=== PATIENT | female | born 1955 | race Two or more races ===

== ENCOUNTER 2016-07-17 12:37 | Emergency (ER) | payer OTHER ==
--- NOTE | 2016-07-17 12:47 | ER Document Report ---
ED Medical Screen (RME) - General Stated Complaint: HEADACHE Notes: Cough nasal congestion fullness for about 3 days associated with a headache. I greeted and performed a rapid initial assessment of this patient. Comprehensive ED assessment and evaluation of the patient, analysis of test results and completion of the medical decision making process will be conducted by additional ED providers. TRAVEL OUTSIDE OF THE [place] IN LAST 30 DAYS: No Past Medical History Past Surgical History: Reports: Hx Orthopedic Surgery - Left shoulder rotator cuff repair., Hx Thyroid Surgery - Partial thyroidectomy - Immunizations Hx Diphtheria, Pertussis, Tetanus Vaccination: Yes Physical Exam - Vital signs Vitals: Temp Pulse Resp BP Pulse Ox 98.7 F 100 22 H 111/64 96 07/17/16 12:43 07/17/16 12:43 07/17/16 12:43 07/17/16 12:43 07/17/16 12:43 Course - Vital Signs Vital signs: Temp Pulse Resp BP Pulse Ox 98.7 F 100 22 H 111/64 96 07/17/16 12:43 07/17/16 12:43 07/17/16 12:43 07/17/16 12:43 07/17/16 12:43
[2016-07-17] MEDS ORDERED: PREDNISONE 20 MG TABLET PO ONE (14:10)
[2016-07-17] MEDS ORDERED: IPRATROPIUM/ALBUTEROL 0.5-2.5 MG/3 ML AMPUL NEB ONE (14:10)
[2016-07-17] MEDS ORDERED: AZITHROMYCIN 250 MG TABLET PO ONE (14:11)
[2016-07-17] MEDS ORDERED: ALBUTEROL SULFATE 0.083% NEB 2.5 MG/3 ML AMPUL NEB SCH (14:26)
[2016-07-17] MEDS ORDERED: CEFTRIAXONE INJ 1000 MG VIAL IM ONE (14:34)
[2016-07-17] MEDS ORDERED: LIDOCAINE 1% INJ-PF (10 MG/ML) 30 ML SDV INJ ONE (14:34)
--- NOTE | 2016-07-17 14:39 | ER Document Report ---
HPI - HPI Patient complains to provider of: cold symptoms Onset: Other Onset/Duration: Persistent - 3 weeks Quality of pain: Achy Pain Level: 5 Context: Patient complains of cough for the past 3 weeks with ear pain that developed 3 days ago. Patient reports fever of 102 yesterday. Patient complains of headache that is worse with coughing. Associated Symptoms: Nonproductive cough, Earache, Fever, Headache. denies: Chest pain, Sore throat Exacerbated by: Coughing Relieved by: Denies Similar symptoms previously: Yes Recently seen / treated by doctor: No - ROS ROS below otherwise negative: Yes Systems Reviewed and Negative: Yes All other systems reviewed and negative - CONSTITUTIONAL Constitutional: REPORTS: Fever - EENT EENT: REPORTS: Ear Pain, Congestion - NEURO Neurology: REPORTS: Headache - RESPIRATORY Respiratory: REPORTS: Coughing. DENIES: Trouble Breathing - GASTROINTESTINAL Gastrointestinal: DENIES: Nausea, Patient vomiting - MUSCULOSKELETAL Musculoskeletal: DENIES: Back Pain - DERM Skin Color: Normal Skin Problems: None Past Medical History - General Information source: Patient - Social History Smoking Status: Former Smoker - Quit last month Chew tobacco use (# tins/day): No Frequency of alcohol use: None Drug Abuse: None Occupation: food and beverage manager Lives with: Family Family History: Reviewed & Not Pertinent Patient has suicidal ideation: No Patient has homicidal ideation: No - Medical History Medical History: Negative Renal/ Medical History: Denies: Hx Peritoneal Dialysis Past Surgical History: Reports: Hx Orthopedic Surgery - Left shoulder rotator cuff repair., Hx Thyroid Surgery - Partial thyroidectomy - Immunizations Hx Diphtheria, Pertussis, Tetanus Vaccination: Yes Vertical Provider Document - CONSTITUTIONAL Agree With Documented VS: Yes Exam Limitations: No Limitations General Appearance: WD/WN, No Apparent Distress - INFECTION CONTROL TRAVEL OUTSIDE OF THE [place] IN LAST 30 DAYS: No - HEENT HEENT: Atraumatic, Normocephalic, Tympanic Membrane Red - Bilateral, Tympanic Membrane Bulging - Bilateral - NECK Neck: Normal Inspection, Supple. negative: Lymphadenopathy-Left, Lymphadenopathy-Right - RESPIRATORY Respiratory: No Respiratory Distress, Rhonchi, Wheezing. negative: Rales O2 Sat by Pulse Oximetry: 96 - CARDIOVASCULAR Cardiovascular: Regular Rate, Regular Rhythm, No Murmur - BACK Back: Normal Inspection - MUSCULOSKELETAL/EXTREMETIES Musculoskeletal/Extremeties: MAEW - NEURO Level of Consciousness: Awake, Alert, Appropriate Motor/Sensory: No Motor Deficit - DERM Integumentary: Warm, Dry, No Rash Course - Re-evaluation Re-evalutation: 07/17/16 16:21 Patient with decreased wheezing and increased air movement. Patient states that her cough frequency has decreased as well. Discussed worsening signs or symptoms that patient should return to medially for. Patient verbalized understanding and agrees with plan of care. - Vital Signs Vital signs: Temp Pulse Resp BP Pulse Ox 98.7 F 100 22 H 111/64 96 07/17/16 12:43 07/17/16 12:43 07/17/16 12:43 07/17/16 12:43 07/17/16 12:43 - Diagnostic Test Radiology reviewed: Image reviewed, Reports reviewed Discharge - Discharge Clinical Impression: Wheezing, Cough Pneumonia Qualifiers: Pneumonia type: due to unspecified organism Laterality: right Lung location: middle lobe of lung Qualified Code(s): J18.1 - Lobar pneumonia, unspecified organism Otitis media Qualifiers: Otitis media type: unspecified Laterality: bilateral Chronicity: acute Condition: Stable Disposition: HOME, SELF-CARE Instructions: Otitis Media ([facility]) Additional Instructions: Return immediately for any new or worsening symptoms Followup with your primary care provider, call tomorrow to make a followup appointment PNEUMONIA: Your examination indicates that you have pneumonia. This is an infection of the lung tissue, usually caused by bacteria or a virus. Symptoms include cough, fever, shaking chills, chest pain, shortness of breath, and coughing up bloody sputum. Treatment for bacterial pneumonia includes rest, antibiotics for 10 to 14 days, increasing your clear liquid intake, a cool mist humidifier at your bedside, and fever medication. Often, a repeat chest X-ray is performed in a few weeks--even if you feel better--to ascertain whether the infection has completely resolved and no underlying lung problem is present. You should call the physician if you develop persistent vomiting, high fever that does not respond to fever medication, increasing shortness of breath , confusion, or lethargy. Also, failure to improve within two to three days is an indication for re-examination. ANTIBIOTIC INJECTION: You have been given an antibiotic injection. Sometimes the injection must be combined with antibiotic pills. For some infections, the shot provides all the antibiotic that's needed. Common side effects of antibiotics include nausea, intestinal cramping, or diarrhea. These are very unusual following a shot. Women may develop vaginal yeast infections, and babies can get yeast ( thrush) in the mouth following the use of antibiotics. Contact your physician if you develop significant side effects from this medication. Allergy to this antibiotic can result in hives, wheezing, faintness, or itching. If symptoms of allergy occur, call the doctor at once. ROCEPHIN: You have been given an injection of an antibiotic called Rocephin ( ceftriaxone). Sometimes the injection must be combined with antibiotic pills. For some infections, such as an uncomplicated ear infection, Rocephin provides all the antibiotic that's needed. The antibiotic will be in your body for about two days. For serious infections, we usually repeat doses of Rocephin daily. Side effects are very unusual following a shot. Women may develop vaginal yeast infections, and babies can get yeast (thrush) in the mouth following the use of antibiotics. Contact your physician if you have symptoms with this medication. Allergy to this antibiotic can result in hives, wheezing, faintness, or itching. If symptoms of allergy occur, call the doctor at once. ANTIBIOTIC THERAPY: You have been given an antibiotic prescription. It's important that you take all the medication, unless instructed otherwise by your physician. Failure to complete the entire course can result in relapse of your condition. Common side effects of antibiotics include nausea, intestinal cramping, or diarrhea. Women may develop vaginal yeast infections, and babies can get yeast (thrush) in the mouth following the use of antibiotics. Contact your physician if you develop significant side effects from this medication. Allergy to this antibiotic can result in hives, wheezing, faintness, or itching. If symptoms of allergy occur, stop the medication and call the doctor. AZITHROMYCIN: Azithromycin (Zithromax) is a broad spectrum antibiotic in the same class as erythromycin. It can treat a variety of bacterial infections, but is most frequently used for respiratory infections. Azithromycin is extremely long-lasting. It accumulates in body tissues and continues to kill bacteria for many days. In order to improve absorption, Azithromycin should be taken at least one hour before or two hours after a meal. It does not have the same strong tendency to upset the stomach as erythromycin and is usually very well tolerated. Patients who have had a rash or other true allergic reactions to erythromycin should not take this medication. Call if you develop gastrointestinal distress, severe diarrhea, rash, hives, itching, or shortness of breath. USE OF ACETAMINOPHEN (Tylenol): Acetaminophen may be taken for pain relief or fever control. It's much safer than aspirin, offering a wider range of "safe" dosages. It is safe during . Some brand names are Tylenol, Panadol, Datril, Anacin 3, Tempra, and Liquiprin. Acetaminophen can be repeated every four hours. The following are maximum recommended dosages: WEIGHT Dose Drops Elixir Chewable( 80mg) (LBS.) drprs=droppers tsp=teaspoon >89 pounds or adults 650 mg to 900 mg Acetaminophen can be repeated every four hours. Maximum dose not to exceed 4000 mg a day. These maximum recommended dosages are slightly higher than the dosages written on the product container, but these dosages are very safe and below the toxic dosage for acetaminophen. FOLLOW-UP CARE: If you have been referred to a physician for follow-up care, call the physician s office for an appointment as you were instructed or within the next two days. If you experience worsening or a significant change in your symptoms, notify the physician immediately or return to the Emergency Department at any time for re-evaluation. Prescriptions: Albuterol Sulfate [Ventolin Hfa] 2 puff IH Q4HP PRN #17 gm PRN Reason: Azithromycin [Zithromax 250 mg Tablet] 250 mg PO DAILY 4 Days Prednisone [Deltasone 20 mg Tablet] 3 tab PO DAILY 4 Days Forms: Return to Work Referrals: [facility] [Provider Group] - Follow up as needed [facility] [Provider Group] - Follow up tomorrow
[2016-07-17] MEDS ORDERED: ALBUTEROL SULFATE 0.083% NEB 2.5 MG/3 ML AMPUL NEB ONE (15:53)
[2016-07-17] MEDS ORDERED: ONDANSETRON 4 MG TAB.RAPDIS ONE (15:53)
[2016-07-17] MEDS ORDERED: ONDANSETRON 4 MG TAB.RAPDIS PO ONE (15:53)
[2016-07-17 16:59] VITALS: BP 106/65
== END 2016-07-17 16:56 | disposition home or self-care (01) ==
LOC: ER 12:37
DX: J18.1 Lobar pneumonia, unspecified organism (principal); H66.93 Otitis media, unspecified, bilateral; R06.2 Wheezing; Z87.891 Personal history of nicotine dependence
CPT/HCPCS: 94640; 99283; 96372; 71020; S0119; J3490; J7512; J0696; J7620